=== PATIENT | female | born 1990 | race Caucasian/White ===

== ENCOUNTER 2020-05-09 16:29 | Emergency (ER) | payer OTHER ==
--- NOTE | 2020-05-09 17:15 | ER Document Report ---
ED Medical Screen (RME) - General Chief Complaint: Abdominal Pain Stated Complaint: ABDOMINAL PAIN Time Seen by Provider: 05/09/20 17:13 Notes: Patient presents with a 4-day history of right flank, right upper quadrant pain. Patient denies any fever, nausea vomiting or diarrhea. Patient denies any urinary symptoms. Patient does have a previous history of appendectomy, tonsillectomy previous . I have greeted and performed a rapid initial assessment of this patient. A comprehensive ED assessment and evaluation of the patient, analysis of test results and completion of the medical decision making process will be conducted by additional ED providers. Physical Exam - Vital signs Vitals: Temp Pulse Resp BP Pulse Ox 98.7 F 69 20 125/63 98 05/09/20 16:48 05/09/20 16:48 05/09/20 16:48 05/09/20 16:48 05/09/20 16:48 - Abdominal Tenderness: Tender - RUQ - Back Back: CVA tenderness - right Course - Vital Signs Vital signs: Temp Pulse Resp BP Pulse Ox 98.7 F 69 20 125/63 98 05/09/20 16:48 05/09/20 16:48 05/09/20 16:48 05/09/20 16:48 05/09/20 16:48
[2020-05-09 17:40] LABS: ABSOLUTE EOSINOPHILS # (AUTO) 0.1 10^3/uL (0.0-0.6); ABSOLUTE LYMPHOCYTES (AUTO) 3.6 10^3/uL (0.5-4.7); BASOPHILS % (AUTO) 0.4 % (0-2); HEMOGLOBIN 13.8 g/dL (12.0-15.5); MEAN CORPUSCULAR HEMOGLOBIN 29.7 pg (27.0-33.4); TOTAL CELLS COUNTED % (AUTO) 100 %; WHITE BLOOD COUNT 7.9 10^3/uL (4.0-10.5)
[2020-05-09 17:43] LABS: APPEARANCE,URINE SLIGHTLY-CLOUDY; BILIRUBIN,URINE NEGATIVE (NEGATIVE); COLOR,URINE YELLOW; GLUCOSE, URINE NEGATIVE (NEGATIVE); KETONES,URINE TRACE mg/dL (NEGATIVE); LEUKOCYTE ESTERASE,URINE NEGATIVE (NEGATIVE); NITRITE,URINE NEGATIVE (NEGATIVE); PROTEIN,URINE 30 mg/dL (NEGATIVE); URINE SPECIFIC GRAVITY 1.032
[2020-05-09 17:49] LABS: ABSOLUTE MONOCYTES (AUTO) 0.4 10^3/uL (0.1-1.4); ABSOLUTE NEUT (AUTO) 3.7 10^3/uL (1.7-8.2); EOSINOPHILS % (AUTO) 0.9 % (0-6); HEMATOCRIT 39.9 % (36.0-47.0); LYMPHOCYTES % (AUTO) 45.9 % (13-45); MEAN CORPUSCULAR HGB CONC 34.4 g/dL (32.0-36.0); MEAN CORPUSCULAR VOLUME 86 fl (80-97); MONOCYTES % (AUTO) 5.3 % (3-13); PLATELET COUNT 338 10^3/uL (150-450); RED BLOOD COUNT 4.64 10^6/uL (3.72-5.28); RED CELL DISTRIBUTION WIDTH 12.6 % (11.5-14.0); SEGMENTED NEUTROPHILS % (AUTO) 47.5 % (42-78)
[2020-05-09 17:57] LABS: ALBUMIN 4.8 g/dL (3.5-5.0); ALKALINE PHOSPHATASE 82 U/L (38-126); ANION GAP 9 (5-19); ASPARTATE AMINO TRANSFERASE 41 U/L (14-36); BILIRUBIN,DIRECT 0.2 mg/dL (0.0-0.4); BILIRUBIN,TOTAL 0.3 mg/dL (0.2-1.3); BLOOD UREA NITROGEN 16 mg/dL (7-20); CARBON DIOXIDE 27 mmol/L (22-30); CHLORIDE 101 mmol/L (98-107); GLUCOSE 97 mg/dL (75-110); POTASSIUM 4.3 mmol/L (3.6-5.0); TOTAL PROTEIN 7.9 g/dL (6.3-8.2)
--- NOTE | 2020-05-09 18:39 | RADIOLOGY REPORT (SQ) ---
EXAM DESCRIPTION: U/S ABDOMEN LIMITED W/O DOP IMAGES COMPLETED DATE/TIME: 05/09/2020 6:18 pm REASON FOR STUDY: RUQ pain COMPARISON: None. TECHNIQUE: Dynamic and static grayscale images acquired of the abdomen and recorded on PACS. Additio nal selected color Doppler and spectral images recorded. LIMITATIONS: None. FINDINGS: PANCREAS: No masses. Visualized pancreatic duct normal caliber. LIVER: No masses. Echotexture normal. LIVER VASCULATURE: Normal directional flow of the main portal vein and hepatic veins. GALLBLADDER: No stones. Normal wall thickness. No pericholecystic fluid. ULTRASOUND-DETECTED ARCHER'S SIGN: Negative. INTRAHEPATIC DUCTS AND COMMON DUCT: CBD and intrahepatic ducts normal caliber. No filling defects. AORTA: No aneurysm. RIGHT KIDNEY: Normal size, 9.2 cm. Normal echogenicity. No solid or suspicious masses. No hydronephr osis. No calcifications. PERITONEAL AND RIGHT PLEURAL SPACE: No ascites or effusions. OTHER: No other significant findings. IMPRESSION: NORMAL RIGHT UPPER QUADRANT ULTRASOUND. TECHNICAL DOCUMENTATION: JOB ID: [id number] [employer]- All Rights Reserved Reading location - IP/workstation name: [email or web address]
--- NOTE | 2020-05-09 18:50 | ER Document Report ---
ED General - General Chief Complaint: Abdominal Pain Stated Complaint: ABDOMINAL PAIN Time Seen by Provider: 05/09/20 17:13 Mode of Arrival: Ambulatory Information source: Patient - HPI Notes: Patient complains of a 4-day history of gradually worsening right upper quadrant pain. It seemed to come on after she ate a grilled cheese sandwich a few days ago. She describes it as crampy, gripping, and radiating around to her right mid back. She states that when she was she had several episodes of right upper quadrant pain. At one point she had a gallbladder ultrasound done which she says showed "sludge" in the gallbladder. That report is not available to me. Interestingly, she is being evaluated for pelvic pain by a local [facility]. She was just seen today for this. They recommended that she get a pelvic ultrasound with transvaginal imaging. She was given an injection of Toradol in the office and she said that that both improved her pelvic pain and also made her right upper quadrant pain better. The patient does not directly relate the pain to eating since its onset with a grilled cheese sandwich. She has been trying to follow a low-fat diet with little success in relieving the pain. She has no history of acid peptic disease and has never had problems with gastritis, duodenitis, or peptic ulcer. - Related Data Allergies/Adverse Reactions: duloxetine [From Cymbalta] Allergy (Verified 05/09/20 20:45) gabapentin Allergy (Verified 05/09/20 20:45) venlafaxine [From Effexor] Allergy (Verified 05/09/20 20:45) Past Medical History - Social History Smoking Status: Unknown if Ever Smoked Family History: Reviewed & Not Pertinent - Medical History Medical History: Other Notes: Past medical history is remarkable for depression. Review of Systems - Review of Systems Notes: All other systems were reviewed and were negative or noncontributory except as noted in the present illness. Physical Exam - Vital signs Vitals: Temp Pulse Resp BP Pulse Ox 98.7 F 69 20 125/63 98 05/09/20 16:48 05/09/20 16:48 05/09/20 16:48 05/09/20 16:48 05/09/20 16:48 - Notes Notes: General: This is a well-developed well-nourished female in no acute distress. Vital signs and nursing chief complaint are reviewed. Lungs: Clear to auscultation all wade. Heart: Regular rate and rhythm no murmur rub or gallop. Abdomen: Nondistended, active bowel sounds, soft, positive epigastric and right upper quadrant direct tenderness with no guarding and no Shukla sign. Positive right lower quadrant direct tenderness with no guarding or rebound. Extremities: Without clubbing cyanosis or edema. Skin: Warm moist good turgor no rashes. Neuro: Nonfocal. Course - Re-evaluation Re-evalutation: 05/09/20 19:39 Patient was reassessed at 1938 hrs. The GI cocktail did not improve her pain but made her nauseated. We will move on to CT scan of the abdomen and pelvis with IV contrast only. 05/10/20 02:59 Patient remained comfortable throughout the rest of her stay. CT of the abdomen revealed no abnormalities. We discussed the need for further follow-up. I recommended that she contact her primary care provider to arrange a HIDA scan and then specialty referral if necessary based on those results. I also recommended that she use an acid suppression regimen such as Pepcid 20 mg daily. - Vital Signs Vital signs: Temp Pulse Resp BP Pulse Ox 98.7 F 61 18 130/76 H 99 05/09/20 16:48 05/09/20 23:15 05/09/20 23:15 05/09/20 23:15 05/09/20 23:15 - Laboratory Results Result Diagrams: 05/09/20 17:23 05/09/20 17:23 Laboratory Results Interpreted: 05/09/20 05/09/20 05/09/20 17:23 17:23 17:23 Lymph % (Auto) 45.9 H AST 41 H Urine Protein 30 H Urine Ketones TRACE H Urine Urobilinogen 2.0 H Critical Laboratory Results Reviewed: No Critical Results - Radiology Results Radiology Results Interpreted: 05/10/20 03:01 Abdomen Ultrasound 05/09/20 17:14 IMPRESSION: NORMAL RIGHT UPPER QUADRANT ULTRASOUND. Abdomen/Pelvis CT 05/09/20 19:40 IMPRESSION: No acute abnormality. Critical Radiology Results Reviewed: No Critical Results Discharge - Discharge Clinical Impression: Right upper quadrant abdominal pain Condition: Good Disposition: HOME, SELF-CARE Instructions: Abdominal Pain ([facility]) Additional Instructions: Recommend that you use Pepcid [id number] 20 mg a day. Follow label directions. You may use Tylenol as needed for pain control. Please try to avoid ibuprofen or Aleve as they may irritate your stomach more. Recommend you follow a low-fat diet. Contact your primary care provider to discuss scheduling a HIDA scan. This is a nuclear medicine test that evaluates the function of your gallbladder rather than its structure. Your primary care provider can advise you on what follow-up would be appropriate. Return to the emergency department if your symptoms worsen or if any other concerning symptoms develop.
[2020-05-09] MEDS ORDERED: LIDOCAINE 2% VISCOUS SOLN 15 ML UDCUP PO ONE (19:12)
[2020-05-09] MEDS ORDERED: METOCLOPRAMIDE HCL ORAL SOLN 10 MG/10 ML UDCUP PO ONE (19:12)
[2020-05-09] MEDS ORDERED: MAG HYDROX/AL HYDROX/SIMETH SUSP 30 ML UDCUP PO ONE (19:12)
[2020-05-09] MEDS ORDERED: MORPHINE SULFATE 10 MG/ML INJ IV ONE (20:40)
--- NOTE | 2020-05-09 22:14 | RADIOLOGY REPORT (SQ) ---
CT abdomen and pelvis with contrast on 05/09/2020 at 9:31 PM CLINICAL INDICATION: Right upper quadrant and right lower quadrant abdominal pain TECHNIQUE: Multiple axial images are obtained throughout the abdomen and pelvis following the administration of IV contrast, 83 mL of Omnipaque 350contrast was administered intravenously without complication. This exam was performed according to our departmental dose-optimization program, which includes automated exposure control, adjustment of the mA and/or kV according to patient size and/or use of iterative reconstruction technique. Total DLP is 859.5 mGy*cm. COMPARISON: 11/11/2015 FINDINGS: Abdomen: The lung bases are clear. The solid abdominal organs are unremarkable. There is no abdominal adenopathy. There is no free fluid or free air within the abdomen. The abdominal portion of the GI tract is unremarkable. Pelvis: There is no free fluid in the pelvis. Probable section scar is noted in the anterior lower uterine segment. Pelvic organs otherwise appear unremarkable by CT. There is no pelvic adenopathy. The patient is status post appendectomy. The pelvic portion of the GI tract is unremarkable. No bony abnormality is noted. IMPRESSION: No acute abnormality.
[2020-05-09 23:17] VITALS: BP 130/76
== END 2020-05-09 23:15 | disposition home or self-care (01) ==
LOC: ER 16:29
DX: R10.11 Right upper quadrant pain (principal)
CPT/HCPCS: 99285; 96374; 36415; 83690; 84703; 85025; 80053; 81001; 76705; 74177; J3490; J2270